=== PATIENT | male | born 1970 | race Caucasian/White ===

== ENCOUNTER → 2017-05-31 11:48 | Outpatient (CLI) | payer OTHER, SELFPAY ==
--- NOTE | 2017-05-31 12:08 | XR_ITS ---
XR chest 2V INDICATION: Chest pain COMPARISON: None available FINDINGS: The cardiovascular structures are unremarkable. No mediastinal shift or hilar mass is evident. The lungs are well expanded and clear bilaterally. The costophrenic sulci are sharp. No significant bony anomalies are apparent. IMPRESSION: Negative chest.
[2017-05-31 12:31] LABS: Creatine Kinase MB 1.7 ng/ml (0.0-3.6); Troponin I < 0.02 ng/ml (0.00-0.06)
[2017-05-31 12:32] LABS: Alanine Aminotransferase 44 U/L (12-78); Albumin Level 4.2 gm/dL (3.4-5.0); Albumin/Globulin Ratio 1.1 (1.1-1.8); Alkaline Phosphatase 82 U/L (46-116); Aspartate Amino Transferase 21 U/L (15-37); Bilirubin,Total 0.5 mg/dL (0.2-1.0); Blood Urea Nitrogen 16 mg/dL (7-18); CKMB Relative Index 0.6 U/L (0-4.0); Calcium 9.3 mg/dL (8.5-10.1); Carbon Dioxide 27 mmol/L (21.0-32.0); Chloride 103 mmol/L (98-107); Chol/HDL Ratio 7.5 (1-3.5); Cholesterol 231 mg/dL (140-200); Creatine Kinase 304 U/L (39-308); Creatinine,Serum 0.91 mg/dL (0.70-1.30); Estimated Glomerular Filt Rate 90 ml/min (>60); GFR (African American) 109 ML/MIN (>60); Globulin 3.9 gm/dl (1.3-3.2); Glucose 109 mg/dL (74-106); HDL Cholesterol 31 mg/dL (27-67); LDL Cholesterol 144 mg/dL (0-130); Sodium 139 mmol/L (136-145); Total Protein,Serum 8.1 gm/dL (6.4-8.2); Triglycerides 281 mg/dL (30-200); VLDL Cholesterol 56 mg/dL (0-40)
== END ==
PROVIDERS: PCP Family Medicine; Visit Provider Family Medicine
DX: R07.9 Chest pain, unspecified (principal)
CPT/HCPCS: 36415; 71046; 80053; 80061; 82550; 82553; 84484; 93005

== ENCOUNTER → 2017-06-14 06:33 | Outpatient (CLI) | payer OTHER, SELFPAY ==
--- NOTE | 2017-06-14 06:37 | NM_ITS ---
SPECT MYOCARDIAL PERFUSION SCAN, REST AND STRESS: EXERCISE STRESS: [facility] REVIEW QGS EF AND WALL MOTION EVALUATION: QPS - PERFUSION EVALUATION: HISTORY: Chest pain,SOB, Fatigue, Tobacco use PROCEDURE: Rest imaging performed after administration of9.92 millicuries Tc MIBI. Dose administered at7:10 a.m., with imaging thereafter. Stress imaging was then performed following7 minutes 16 seconds of exercise stress. The patient achieved a heart [id number] with projected heart rate of148 . Resting BP144/86 with stress 200/90. At maximum exercise stress,30.6 millicuries Tc MIBI administered at8:45 a.m. with [id number] minutes thereafter. FINDINGS: Perfusion Evaluation: The single slice spect images as well as the [facility] bull's-eye data summary were reviewed. Wall Motion and Ejection Fraction Evaluation: Gated SPECT review and analysis used to evaluate these features. There is a 60 % left ventricular ejection fraction. There seems to be good wall motion Uniform myocardial activity at both stress and rest IMPRESSION: No scintigraphic evidence of exercise-induced myocardial ischemia with normal ejection fraction and normal wall motion
--- NOTE | 2017-06-14 08:06 | HMH.ITSHM ---
dayquil ASA LANSOPRAZOLE
== END ==
PROVIDERS: PCP Family Medicine; Visit Provider Family Medicine
DX: R07.2 Precordial pain (principal)
CPT/HCPCS: 78452; 93017; A9502

== ENCOUNTER → 2022-09-09 06:33 | Outpatient (CLI) | payer BC, SELFPAY ==
--- NOTE | 2022-09-09 06:41 | CT_ITS ---
FINAL REPORT TECHNIQUE: Axial CT images of the chest were obtained without contrast. Low-dose protocol was utilized. This study was performed with techniques to keep radiation doses as low as reasonably achievable (ALARA). Individualized dose reduction techniques using automated exposure control or adjustment of mA and/or kV according to the patient's size were employed. CLINICAL HISTORY: PERSONAL HISTORY OF NICOTINE DEPENDENCE CURRENT SMOKER 1PPD X35 YEARS COMPARISON: None FINDINGS: CT CHEST WITHOUT, LOW DOSE SCREENING CT Di Vol: 2.90 mGy DLP: 109.68 mGy*cm There are multiple small and borderline sized mediastinal nodes which are favored to be reactive. The heart size is normal. There is no pleural or pericardial effusion. The lung windows show a 5 mm nodule in the posterior right upper lobe on image 24. There is a calcified granuloma in the right upper lobe.. Limited images of the upper abdomen demonstrate partially imaged upper abdominal adenopathy. There is a periaortic node measuring 20 mm and an omental nodule measuring 20 mm. These are not of uncertain significance but neoplasm involvement is not excluded. IMPRESSION: 5 mm posterior right upper lobe nodule. LR Category 2S: 12 month follow-up low-dose chest CT is recommended. Modifier S: Upper abdomen adenopathy. Recommend CT abdomen and pelvis with contrast for further evaluation. Reviewed, Interpreted and Dictated by Kumar Fleming III, MD Transcribed by Monika Hernandes Authenticated and [facility]
--- NOTE | 2022-09-09 06:45 | US_ITS ---
FINAL REPORT CLINICAL HISTORY: OTHER ASCITES FINDINGS: RIGHT UPPER QUADRANT ULTRASOUND Sonographic images of the right upper quadrant were obtained. The pancreas is partially obscured. There is fatty infiltration of the liver. The gallbladder appears normal without evidence of gallstones.The common duct measures 4 mm. Limited images of the right kidney are normal. There is mild right hydronephrosis. IMPRESSION: Mild right hydronephrosis. Fatty liver. Reviewed, Interpreted and Dictated by Kumar Fleming III, MD Transcribed by Sabiha Torres Authenticated and [facility]
== END ==
PROVIDERS: PCP Family Medicine; Visit Provider Physician Assistant
DX: Z87.891 Personal history of nicotine dependence (principal); Z12.2 Encounter for screening for malignant neoplasm of respiratory organs; R18.8 Other ascites
CPT/HCPCS: 71271; 76705

== ENCOUNTER → 2022-09-20 09:30 | Outpatient (CLI) | payer BC, SELFPAY ==
--- NOTE | 2022-09-20 09:53 | CT_ITS ---
FINAL REPORT TECHNIQUE: Oral and IV contrast enhanced exam CLINICAL HISTORY: LYMPH NODES ENLARGED COMPARISON: None FINDINGS: Abdomen: Lung bases are clear. The gallbladder is unremarkable. Liver has an unremarkable CT appearance. The spleen, pancreas and adrenal glands are unremarkable. There is significant adenopathy within the lesser omentum and celiac axis. The largest node is best seen in image #22, and measures 15 x 12 mm, along the lesser curvature of the stomach. There are retroperitoneal nodes present as well. An aortocaval node measuring 18 x 10 mm in size is noted on axial image #46. There is left para-aortic adenopathy seen in image #40, measuring 19 x 15 mm in size. No mesenteric nodes are identified. There is abnormal soft tissue filling and encasing the proximal right ureter, compatible with neoplasm. The ureteral tumor measures up to 110 mm in length by 25 mm in caliber and produces moderate right hydronephrosis. The right ureteral tumor terminates in the right mid pelvis best seen on axial image #93. No bowel obstruction or fluid collection is seen. Pelvis: The appendix is normal. Pelvic bowel loops are unremarkable. No fluid collection or adenopathy is seen. IMPRESSION: Elongated tumor filling and encasing the right proximal and mid ureter. The differential diagnosis would include transitional cell carcinoma or lymphoma. This causes moderate right hydronephrosis. Moderate upper and mid abdominal adenopathy is present, which could be lymphoproliferative disorder or metastatic disease. Reviewed, Interpreted and Dictated by Paramjit Alejandre MD Transcribed by Masha Brink Authenticated and [facility]
== END ==
PROVIDERS: PCP Physician Assistant; Visit Provider Physician Assistant
DX: R59.9 Enlarged lymph nodes, unspecified (principal)
CPT/HCPCS: 74177; 81001; 87086; Q9967

== ENCOUNTER → 2022-11-25 11:00 | Outpatient (CLI) | payer BC, SELFPAY ==
[2022-11-25 12:33] LABS: Microscopic, Urine URINE MICROSCOPIC (MICROSCOPIC)
[2022-11-25 12:37] LABS: Appearance,Urine CLOUDY (Clear); Bilirubin,Urine Negative (Negative); Blood, Urine 2+ (Negative); Color,Urine DARK YELLOW (Yellow); Glucose,Urine (UA) Negative (Negative); Ketones,Urine Negative (Negative); Leukocyte Esterase,Urine TRACE (Negative); Nitrate,Urine Negative (Negative); PH,Urine 6.5 (5.0-8.5); Protein,Urine 2+ (Negative)
[2022-11-25 12:57] LABS: Bacteria,Urine Trace /lpf; RBC,Urine TNTC #/hpf (0-3); Squamous Epithelial Cell,Urine Occasional #/hpf (0-5)
== END ==
PROVIDERS: Physician Assistant; PCP Nurse Practitioner Family; Visit Provider Nurse Practitioner Family
DX: N39.0 Urinary tract infection, site not specified (principal)
CPT/HCPCS: 81001; 87086